=== PATIENT | female | born 1975 | race Two or more races ===

== ENCOUNTER 2016-11-09 21:01 | Emergency (ER) | payer OTHER ==
[2016-11-09] MEDS ORDERED: IOPAMIDOL 370 (76%) IV.SOLN 150 ML IV ONE (21:02)
[2016-11-09 21:30] LABS: SPECIFIC GRAVITY 1.025 (1.001-1.030); URINE APPEARANCE CLEAR; URINE BILIRUBIN NEGATIVE (NEGATIVE); URINE BLOOD NEGATIVE (NEGATIVE); URINE COLOR YELLOW; URINE GLUCOSE (UA) NEGATIVE (NEGATIVE); URINE LEUKOCYTE ESTERASE NEGATIVE (NEGATIVE); URINE NITRITE NEGATIVE (NEGATIVE); URINE PROTEIN NEGATIVE (NEGATIVE); URINE UROBILINOGEN NORMAL (0-1 mg/dl)
[2016-11-09] MEDS ORDERED: SODIUM CHLORIDE 0.9% 1,000 ML ONE (22:41)
[2016-11-09] MEDS ORDERED: ONDANSETRON 4 MG/2ML 2 ML VIAL ONE (22:41)
[2016-11-09 22:50] LABS: ABSOLUTE NEUTROPHIL COUNT 5.3 K/mm3 (1.8-7.7); BASO % 0.3 % (0.2-1.0); EOS # 0.2 (0.0-0.5); EOS % 2.1 % (0.9-2.9); HEMATOCRIT 37.9 % (37.0-47.0); HEMOGLOBIN 12.6 gm/l (12.0-16.0); IMM NEUT% 0.3 % (0-1); LYMPH # 2.9 (1.0-4.8); LYMPH % 31.8 % (15-45); MEAN CELL VOLUME 89.2 fl (81.0-99.0); MEAN CORPUSCULAR HEMOGLOBIN 29.6 pg (27.0-31.0); MEAN CORPUSCULAR HGB CONC 33.2 g/dl (33.0-37.0); MEAN PLATELET VOLUME 9.4 fl (7.4-10.4); MONO # 0.6 (0.0-0.8); MONO % 6.5 % (4-12); PLATELET COUNT 294 K/mm3 (130-400); RED CELL DISTRIBUTION WIDTH 13.3 % (11.5-14.5)
[2016-11-09 23:09] LABS: ALB/GLOB RATIO 1.1 (>1.0); ALBUMIN 3.7 gm/dL (3.5-5.7)
[2016-11-10 00:24] LABS: HCG,QUALITATIVE URINE NEGATIVE
[2016-11-10] MEDS ORDERED: METRONIDAZOLE 500 MG TABLET ONE (04:06)
--- NOTE | 2016-11-10 08:32 | CT ---
ABD/PELVIS W/ CON COMPARISON: CT abdomen and pelvis with contrast 06/10/2014 HISTORY: 2 days of lower abdominal and flank pain. Technique: No oral contrast. Intravenous injection 125 mL Isovue 370. Using a [employer] Aquilion [address] scanner, images were obtained from the diaphragm to the floor the pelvis. An automated dose reduction technique was used to minimize patient radiation dose. Dose information: CTDIvol (mGy): 21.50 DLP(mGycm): 1066.20 FINDINGS: Lung bases: Normal. Inferior mediastinum and heart: Normal. Liver: Normal. Gallbladder: Cholecystectomy. Bile ducts: Normal. Pancreas: Normal. Spleen: Normal. Adrenal glands: Normal. Kidneys: Normal. Ureters: Normal Urinary bladder: Normal. Uterus and adnexa: 4.0 x 4.1 cm mildly enhancing mass. Blood vessels: Normal Lymph nodes: Normal Stomach: Normal Duodenum: Normal Small intestine: Normal Appendix: Normal Colon: In the proximal sigmoid colon, there is diverticulosis with some mild adjacent inflammatory stranding. Abdominal wall and supporting musculature: Normal Bones: Normal IMPRESSION: 1. Proximal sigmoid colon early diverticulitis versus epiploic appendicitis. 2. Incidental findings include cholecystectomy and 4 x 4.1 cm uterine leiomyoma. Preliminary report by [facility] radiologist Saroj Hammonds M.D. 11/10/2016 at 01:00
== END 2016-11-10 03:03 | disposition home or self-care (01) ==
LOC: ED 21:01
DX: K57.92 Diverticulitis of intestine, part unspecified, without perforation or abscess without bleeding (principal); J45.909 Unspecified asthma, uncomplicated
CPT/HCPCS: 81025; 85025; 80053; 81003; 74177; 99284 ×2; 96374; A9270; J2405; J7030; Q9967